=== PATIENT | female | born 1975 | race Caucasian/White ===

== ENCOUNTER 2016-11-28 16:36 | Emergency (ER) | payer MEDICARE ==
[2016-11-28 17:24] LABS: HEMOGLOBIN 7.4 gm/dl (12.3-15.3); RED BLOOD COUNT 3.93 M/UL (4.00-5.10); WHITE BLOOD COUNT 6.4 K/UL (4.5-11.0)
[2016-11-28 17:31] LABS: BUN/CREATININE RATIO 17 (0-10)
== END 2016-11-28 18:25 | disposition home or self-care (01) ==
LOC: ER1 16:36
PROVIDERS: Emergency Medicine
DX: D64.9 Anemia, unspecified (principal); K21.9 Gastro-esophageal reflux disease without esophagitis; F17.210 Nicotine dependence, cigarettes, uncomplicated; E03.9 Hypothyroidism, unspecified; E07.9 Disorder of thyroid, unspecified; Z88.0 Allergy status to penicillin
CPT/HCPCS: 36415; 80048; 85025; 99284

== ENCOUNTER 2021-03-08 16:19 | Emergency (ER) | payer MEDICARE, OTHER ==
[~2021-03-08 16:19] MED LIST: CLEOCIN HCL300 MG PO; FERROUS SULFAT325 M2 PO; FOLIC ACID 1 MG1 MG PO; NEURONTIN400 MG PO; SEROQUEL300 MG PO; VITAMIN B-1000 MCG/M IM
[2021-03-08] MEDS ORDERED: IBUPROFEN600 MG PO (18:43)
[2021-03-08] MEDS ORDERED: BACTROBAN OINT22 GM EXT (18:43)
[2021-03-08] MEDS ORDERED: DOXYCYCLINE HY100 M2 PO (18:43)
== END 2021-03-08 19:55 | disposition home or self-care (01) ==
LOC: ER1 16:19
DX: S61.552A Open bite of left wrist, initial encounter (principal); S21.252A Open bite of left back wall of thorax without penetration into thoracic cavity, initial encounter; S51.052A Open bite, left elbow, initial encounter; Z90.89 Acquired absence of other organs; Z88.0 Allergy status to penicillin; F17.210 Nicotine dependence, cigarettes, uncomplicated; W54.0XXA Bitten by dog, initial encounter
CPT/HCPCS: 12004; 73080; 73090; 73130; 73502; 99283

== ENCOUNTER 2021-08-16 18:44 | Emergency (ER) | payer MEDICARE, OTHER ==
[~2021-08-16 18:44] MED LIST changes: +BACTROBAN OINT22 GM EXT; +DOXYCYCLINE HY100 M2 PO; +IBUPROFEN600 MG PO
[2021-08-16] MEDS ORDERED: BACTRIM DS TAB1 EACH PO (22:42)
[2021-08-16] MEDS ORDERED: METRONIDAZOLE500 MG PO (22:42)
[2021-08-16] MEDS ORDERED: NAPROSYN500 MG PO (22:42)
== END 2021-08-16 23:10 | disposition home or self-care (01) ==
LOC: ER1 18:44
DX: S62.307A Unspecified fracture of fifth metacarpal bone, left hand, initial encounter for closed fracture (principal); S51.812A Laceration without foreign body of left forearm, initial encounter; S51.811A Laceration without foreign body of right forearm, initial encounter; S61.217A Laceration without foreign body of left little finger without damage to nail, initial encounter; W54.0XXA Bitten by dog, initial encounter
CPT/HCPCS: 12006; 73090; 73140; 99283

== ENCOUNTER 2021-08-20 16:59 | Emergency (ER) | payer MEDICARE, OTHER ==
[~2021-08-20 16:59] MED LIST changes: +BACTRIM DS TAB1 EACH PO; +METRONIDAZOLE500 MG PO; +NAPROSYN500 MG PO
== END 2021-08-20 17:31 | disposition left against medical advice (07) ==
LOC: ER1 16:59
DX: Z53.21 Procedure and treatment not carried out due to patient leaving prior to being seen by health care provider (principal)